=== PATIENT | female | born 1960 | race Caucasian/White ===

== ENCOUNTER → 2018-01-16 | Outpatient (CLI) | payer MEDICARE, BC ==
[~2018-01-16] MED LIST: ABAC300; ACET325 PO; ALBU90I INH; ALBU90OI INH; AMERGE PO; AMLO5 PO; ASPI325 PO; ASPI325EC PO; ATEN25; AZIT500 PO; AZOR PO; Ambien10 MG PO; Aspir-Trin325 MG PO; Ativan1 MG PO; Biotin1 MG PO; CARV25 PO; CARVEDILOL; CEFP250 PO; CEPH500; CLON.1 PO; Cleocin HCl300 MG PO; Cortef5 MG PO; DELTASONE20 MG PO; DEXA.5 PO; DEXA1 PO; DICL25ER PO; DICLOFENAC POTASSIUM PO; DIGO.25 PO; DILT60 PO; DOCU100 PO; Diclofenac Pota50 MG PO; EMERGE; EPIN.3I IM; ESCI10 PO; ESCI20 PO; ESTRA PO; ESTROGEN CREAM; Estradiol0.5 MG PO; Fludrocortison0.1 MG PO; GABA300 PO; GLIM4 PO; HYDACE5 PO; HYDACE7.5 PO; HYDCOR10 PO; HYDCOR20 PO; Hair, Skin & N1 EACH PO; Hydrocortisone10 MG PO; IBUP600 PO; IBUP800; IBUP800 PO; INSLI100I SC; INSR10I SC; LABE100 PO; LIOT25 PO; LISI10 PO; LISI20 PO; LISI5 PO; LOPE2C PO; LORA1 PO; LOVA20 PO; LOW OGESTREL PO; METF500 PO; METO100ER PO; METO25ER PO; METPRE4 PO; MULVITMIND PO; Mobic15 MG PO; NARA2.5; NARA2.5 PO; NEBI10 PO; NORETH PO; Norco 5-325 Ta1 EACH PO; ONDA4 PO; OXYACE5T PO; PRED1 PO; PRED20 PO; PRED20 PR; PRED5 PO; PREG75 PO; PROM25 PO; PROM25S PR; Percocet 10-321 EACH PO; Percocet 5-3251 EACH PO; RXHYDACE PO; RXOXYACE PO; RXPROM25 PO; SUMA25; TELM80 PO; TOPI100 PO; TOPI50 PO; TRAM50 PO; TRIE10TC TOP; VERA240ER PO; VERA240ERB PO; ZIPSOR25 MG PO; ZOLP10 PO; Zofran Odt4 MG PO; Zofran Odt4 MG SL; [UNRECOGNIZED DRUG - OTHER]; [UNRECOGNIZED DRUG - OTHER] PO; [UNRECOGNIZED DRUG - OTHER] PO; [UNRECOGNIZED DRUG - REMARK]; [UNRECOGNIZED DRUG - REMARK]; bistolic
[2018-01-16 20:17] LABS: BASOPHILS ABSOLUTE AUTO 0.04 K/mm3 (0.00-0.23); BASOPHILS PERCENT AUTO 1 % (0-2); EOSINOPHILS ABSOLUTE AUTO 0.29 K/mm3 (0.00-0.68); EOSINOPHILS PERCENT AUTO 3 % (0-6); Hematocrit 41.2 % (33.0-51.0); Hemoglobin 13.4 g/dL (11.5-16.0); IMMATURE GRAN ABSOLUTE AUTO 0.04 K/mm3 (0.00-0.10); IMMATURE GRAN PERCENT AUTO 1 % (0-1); LYMPHOCYTES ABSOLUTE AUTO 2.47 K/mm3 (0.84-5.20); LYMPHOCYTES PERCENT AUTO 29 % (21-46); MONOCYTES ABSOLUTE AUTO 0.47 K/mm3 (0.16-1.47); MONOCYTES PERCENT AUTO 6 % (4-13); Mean Corpuscular HGB 29.6 pg (26.0-34.0); Mean Corpuscular HGB Conc 32.5 g/dL (31.5-36.5); Mean Corpuscular Volume 91 fL (80-100); Mean Platelet Volume 9.8 fL (9.1-12.4); NEUTROPHILS ABSOLUTE AUTO 5.12 K/mm3 (1.96-9.15); NEUTROPHILS PERCENT AUTO 61 % (41-73); Platelet Count 295 K/mm3 (150-400); RDW Coefficient Variation 12.7 % (11.7-14.2); RDW Standard Deviation 42.1 fL (35.1-46.3); Red Blood Cell Count 4.52 M/mm3 (3.80-5.20); White Blood Cell Count 8.43 K/mm3 (4.00-11.30)
[2018-01-16 20:35] LABS: Alanine Aminotransfer (ALT/SGP 20 U/L (12-78); Albumin/Globulin Ratio 1.1 (0.8-1.8); Alk Phos 72 U/L (50-136); Anion Gap 10 mmol/L (6-16); Aspartate Aminotrans (AST/SGOT 12 U/L (12-37); Bilirubin, Total 0.2 mg/dL (0.1-1.0); Blood Urea Nitrogen 13 mg/dL (8-24); Bun/Creatinine Ratio 18.7 (12.0-20.0); CO2, Blood 23 mmol/L (21-32); Calcium, Blood 9.1 mg/dL (8.5-10.1); Chloride, Blood 107 mmol/L (98-108); Globulin, Blood 3.8 g/dL (2.2-4.0); Glomerular Filtration Rate >60 (60-); Glucose, Blood 86 mg/dL (70-99); Potassium, Blood 3.8 mmol/L (3.5-5.5); Sodium, Blood 140 mmol/L (136-145); Total Protein, Blood 7.8 g/dL (6.4-8.2)
== END ==
LOC: LAB 20:13
PROVIDERS: Nurse Practitioner
DX: R52 Pain, unspecified (principal); R50.9 Fever, unspecified
CPT/HCPCS: 80053; 85025

== ENCOUNTER 2018-01-27 19:52 | Inpatient (IN) | payer MEDICARE, BC ==
[~2018-01-27] VITALS: Ht 170.2 cm; Wt 75.0 kg
[~2018-01-27 19:52] MED LIST changes: -Cleocin HCl300 MG PO; -ESTROGEN CREAM; -LORA1 PO; -Mobic15 MG PO; -ZIPSOR25 MG PO
[2018-01-27 20:18] LABS: BASOPHILS ABSOLUTE AUTO 0.07 K/mm3 (0.00-0.23); BASOPHILS PERCENT AUTO 1 % (0-2); EOSINOPHILS ABSOLUTE AUTO 0.45 K/mm3 (0.00-0.68); EOSINOPHILS PERCENT AUTO 4 % (0-6); Hematocrit 37.2 % (33.0-51.0); Hemoglobin 12.1 g/dL (11.5-16.0); IMMATURE GRAN ABSOLUTE AUTO 0.04 K/mm3 (0.00-0.10); IMMATURE GRAN PERCENT AUTO 0 % (0-1); LYMPHOCYTES ABSOLUTE AUTO 2.82 K/mm3 (0.84-5.20); LYMPHOCYTES PERCENT AUTO 24 % (21-46); MONOCYTES ABSOLUTE AUTO 0.88 K/mm3 (0.16-1.47); MONOCYTES PERCENT AUTO 8 % (4-13); Mean Corpuscular HGB 30.1 pg (26.0-34.0); Mean Corpuscular HGB Conc 32.5 g/dL (31.5-36.5); Mean Corpuscular Volume 93 fL (80-100); Mean Platelet Volume 9.9 fL (9.1-12.4); NEUTROPHILS PERCENT AUTO 64 % (41-73); Platelet Count 300 K/mm3 (150-400); RDW Standard Deviation 44.2 fL (35.1-46.3); Red Blood Cell Count 4.02 M/mm3 (3.80-5.20); White Blood Cell Count 11.66 K/mm3 (4.00-11.30)
[2018-01-27] MEDS ORDERED: Ativan1 MG PO (20:24)
[2018-01-27 20:36] LABS: Magnesium, Blood 2.1 mg/dL (1.6-2.4); Troponin I <0.015 ng/mL (0.000-0.040)
[2018-01-27 20:39] LABS: Alanine Aminotransfer (ALT/SGP 29 U/L (12-78); Albumin, Blood 3.4 g/dL (3.4-5.0); Albumin/Globulin Ratio 1.1 (0.8-1.8); Alk Phos 58 U/L (50-136); Anion Gap 9 mmol/L (6-16); Aspartate Aminotrans (AST/SGOT 17 U/L (12-37); Bilirubin, Total 0.2 mg/dL (0.1-1.0); Blood Urea Nitrogen 21 mg/dL (8-24); Bun/Creatinine Ratio 14.8 (12.0-20.0); CO2, Blood 21 mmol/L (21-32); Calcium, Blood 8.9 mg/dL (8.5-10.1); Chloride, Blood 110 mmol/L (98-108); Creatinine, Blood 1.42 mg/dL (0.40-1.00); Glomerular Filtration Rate 41 (60-); Glucose, Blood 113 mg/dL (70-99); Sodium, Blood 140 mmol/L (136-145); Total Protein, Blood 6.4 g/dL (6.4-8.2)
[2018-01-27 22:13] LABS: Thyroid Stimulating Hormone 0.701 uIU/mL (0.360-4.800)
[2018-01-28] MEDS ORDERED: ZIPSOR25 MG PO (00:39)
[2018-01-28 04:32] LABS: BASOPHILS ABSOLUTE AUTO 0.01 K/mm3 (0.00-0.23); BASOPHILS PERCENT AUTO 0 % (0-2); EOSINOPHILS ABSOLUTE AUTO 0.02 K/mm3 (0.00-0.68); EOSINOPHILS PERCENT AUTO 0 % (0-6); Hematocrit 36.8 % (33.0-51.0); Hemoglobin 12.1 g/dL (11.5-16.0); IMMATURE GRAN ABSOLUTE AUTO 0.04 K/mm3 (0.00-0.10); IMMATURE GRAN PERCENT AUTO 0 % (0-1); LYMPHOCYTES ABSOLUTE AUTO 1.05 K/mm3 (0.84-5.20); LYMPHOCYTES PERCENT AUTO 10 % (21-46); MONOCYTES ABSOLUTE AUTO 0.07 K/mm3 (0.16-1.47); MONOCYTES PERCENT AUTO 1 % (4-13); Mean Corpuscular HGB Conc 32.9 g/dL (31.5-36.5); Mean Corpuscular Volume 91 fL (80-100); Mean Platelet Volume 10.1 fL (9.1-12.4); NEUTROPHILS ABSOLUTE AUTO 9.48 K/mm3 (1.96-9.15); NEUTROPHILS PERCENT AUTO 89 % (41-73); Platelet Count 278 K/mm3 (150-400); RDW Coefficient Variation 12.9 % (11.7-14.2); RDW Standard Deviation 42.7 fL (35.1-46.3); Red Blood Cell Count 4.04 M/mm3 (3.80-5.20); White Blood Cell Count 10.67 K/mm3 (4.00-11.30)
[2018-01-28 04:57] LABS: Alanine Aminotransfer (ALT/SGP 60 U/L (12-78); Albumin, Blood 2.9 g/dL (3.4-5.0); Alk Phos 61 U/L (50-136); Anion Gap 9 mmol/L (6-16); Aspartate Aminotrans (AST/SGOT 34 U/L (12-37); Bilirubin, Total 0.3 mg/dL (0.1-1.0); Blood Urea Nitrogen 17 mg/dL (8-24); Bun/Creatinine Ratio 19.6 (12.0-20.0); CO2, Blood 19 mmol/L (21-32); Calcium, Blood 8.1 mg/dL (8.5-10.1); Chloride, Blood 114 mmol/L (98-108); Creatinine, Blood 0.87 mg/dL (0.40-1.00); Glomerular Filtration Rate >60 (60-); Glucose, Blood 177 mg/dL (70-99); Potassium, Blood 3.6 mmol/L (3.5-5.5); Sodium, Blood 142 mmol/L (136-145); Total Protein, Blood 5.9 g/dL (6.4-8.2)
== END 2018-01-28 19:27 | disposition home or self-care (01) | DRG 645 ==
LOC: ER 19:52 → PCU 22:45
PROVIDERS: Emergency Medicine; Family Medicine
DX: E27.1 Primary adrenocortical insufficiency (principal); I95.9 Hypotension, unspecified; R00.1 Bradycardia, unspecified; E86.0 Dehydration; N28.9 Disorder of kidney and ureter, unspecified; F32.9 Major depressive disorder, single episode, unspecified; G43.909 Migraine, unspecified, not intractable, without status migrainosus; G44.89 Other headache syndrome; F51.04 Psychophysiologic insomnia; Z91.030 Bee allergy status; Z79.899 Other long term (current) drug therapy; Z88.0 Allergy status to penicillin; Z88.8 Allergy status to other drugs, medicaments and biological substances
CPT/HCPCS: 36415; 71045; 80053; 83735; 84443; 84484; 85025; 93005; 93010; 93306; 96361; 96374; 96375; 99285; J1940; J2405; J2550; J2930; J7030; J7120

== ENCOUNTER → 2018-07-30 | Outpatient (CLI) | payer MEDICARE, BC ==
[~2018-07-30] MED LIST changes: +ZIPSOR25 MG PO
== END | disposition home or self-care (01) ==
LOC: PLD 08:23 → LAB SHORT 08:23
DX: R93.8 Abnormal findings on diagnostic imaging of other specified body structures (principal)
CPT/HCPCS: 88305

== ENCOUNTER 2018-09-09 06:02 | Day surgery (SDC) | payer MEDICARE, BC ==
[~2018-09-09] VITALS: Ht 170.2 cm; Wt 72.1 kg
[~2018-09-09 06:02] MED LIST changes: +LORA1 PO; +Mobic15 MG PO
[2018-09-09] MEDS ORDERED: ESTROGEN CREAM (06:40)
[2018-09-09 15:32] LABS: BASOPHILS ABSOLUTE AUTO 0.01 K/mm3 (0.00-0.23); BASOPHILS PERCENT AUTO 0 % (0-2); EOSINOPHILS ABSOLUTE AUTO 0.01 K/mm3 (0.00-0.68); EOSINOPHILS PERCENT AUTO 0 % (0-6); Hematocrit 34.7 % (33.0-51.0); Hemoglobin 11.2 g/dL (11.5-16.0); IMMATURE GRAN ABSOLUTE AUTO 0.06 K/mm3 (0.00-0.10); IMMATURE GRAN PERCENT AUTO 1 % (0-1); LYMPHOCYTES ABSOLUTE AUTO 0.91 K/mm3 (0.84-5.20); LYMPHOCYTES PERCENT AUTO 7 % (21-46); MONOCYTES ABSOLUTE AUTO 0.33 K/mm3 (0.16-1.47); MONOCYTES PERCENT AUTO 3 % (4-13); Mean Corpuscular HGB 30.5 pg (26.0-34.0); Mean Corpuscular HGB Conc 32.3 g/dL (31.5-36.5); Mean Corpuscular Volume 95 fL (80-100); Mean Platelet Volume 9.5 fL (9.1-12.4); NEUTROPHILS ABSOLUTE AUTO 11.84 K/mm3 (1.96-9.15); NEUTROPHILS PERCENT AUTO 90 % (41-73); Platelet Count 237 K/mm3 (150-400); RDW Coefficient Variation 12.8 % (11.7-14.2); RDW Standard Deviation 44.2 fL (35.1-46.3); Red Blood Cell Count 3.67 M/mm3 (3.80-5.20); White Blood Cell Count 13.16 K/mm3 (4.00-11.30)
[2018-09-10 04:29] LABS: BASOPHILS ABSOLUTE AUTO 0.03 K/mm3 (0.00-0.23); BASOPHILS PERCENT AUTO 0 % (0-2); EOSINOPHILS ABSOLUTE AUTO 0.14 K/mm3 (0.00-0.68); EOSINOPHILS PERCENT AUTO 1 % (0-6); Hematocrit 31.7 % (33.0-51.0); Hemoglobin 10.1 g/dL (11.5-16.0); IMMATURE GRAN ABSOLUTE AUTO 0.05 K/mm3 (0.00-0.10); IMMATURE GRAN PERCENT AUTO 0 % (0-1); LYMPHOCYTES ABSOLUTE AUTO 2.02 K/mm3 (0.84-5.20); LYMPHOCYTES PERCENT AUTO 16 % (21-46); MONOCYTES ABSOLUTE AUTO 0.92 K/mm3 (0.16-1.47); MONOCYTES PERCENT AUTO 8 % (4-13); Mean Corpuscular HGB 30.7 pg (26.0-34.0); Mean Corpuscular HGB Conc 31.9 g/dL (31.5-36.5); Mean Corpuscular Volume 96 fL (80-100); Mean Platelet Volume 9.6 fL (9.1-12.4); NEUTROPHILS ABSOLUTE AUTO 9.16 K/mm3 (1.96-9.15); NEUTROPHILS PERCENT AUTO 74 % (41-73); Platelet Count 213 K/mm3 (150-400); RDW Coefficient Variation 12.8 % (11.7-14.2); RDW Standard Deviation 45.8 fL (35.1-46.3); Red Blood Cell Count 3.29 M/mm3 (3.80-5.20); White Blood Cell Count 12.32 K/mm3 (4.00-11.30)
[2018-09-10 11:23] LABS: BASOPHILS ABSOLUTE AUTO 0.02 K/mm3 (0.00-0.23); BASOPHILS PERCENT AUTO 0 % (0-2); EOSINOPHILS ABSOLUTE AUTO 0.03 K/mm3 (0.00-0.68); EOSINOPHILS PERCENT AUTO 0 % (0-6); Hematocrit 34.2 % (33.0-51.0); Hemoglobin 10.9 g/dL (11.5-16.0); IMMATURE GRAN ABSOLUTE AUTO 0.04 K/mm3 (0.00-0.10); IMMATURE GRAN PERCENT AUTO 0 % (0-1); LYMPHOCYTES ABSOLUTE AUTO 0.91 K/mm3 (0.84-5.20); LYMPHOCYTES PERCENT AUTO 8 % (21-46); MONOCYTES ABSOLUTE AUTO 0.36 K/mm3 (0.16-1.47); MONOCYTES PERCENT AUTO 3 % (4-13); Mean Corpuscular HGB 30.7 pg (26.0-34.0); Mean Corpuscular HGB Conc 31.9 g/dL (31.5-36.5); Mean Corpuscular Volume 96 fL (80-100); Mean Platelet Volume 9.9 fL (9.1-12.4); NEUTROPHILS ABSOLUTE AUTO 9.89 K/mm3 (1.96-9.15); NEUTROPHILS PERCENT AUTO 88 % (41-73); Platelet Count 224 K/mm3 (150-400); RDW Coefficient Variation 12.9 % (11.7-14.2); RDW Standard Deviation 45.9 fL (35.1-46.3); Red Blood Cell Count 3.55 M/mm3 (3.80-5.20); White Blood Cell Count 11.25 K/mm3 (4.00-11.30)
[2018-09-10] MEDS ORDERED: Percocet 5-3251 EACH PO (16:59)
[2018-09-10] MEDS ORDERED: IBUP800 PO (16:59)
== END 2018-09-10 17:08 | disposition home or self-care (01) ==
LOC: ORSCMMR 06:02 → ORD 07:30 → SURS 12:28 → ORSCMMR 09-10 17:08
PROVIDERS: Obstetrics & Gynecology
PROC: 0UT9FZZ Resection of Uterus, Via Natural or Artificial Opening With Percutaneous Endoscopic Assistance (ICD-10-PCS; principal; 2018-09-10)
DX: D25.9 Leiomyoma of uterus, unspecified (principal); N85.00 Endometrial hyperplasia, unspecified; N85.2 Hypertrophy of uterus; N95.0 Postmenopausal bleeding; J45.909 Unspecified asthma, uncomplicated; Z79.899 Other long term (current) drug therapy
CPT/HCPCS: 36415; 85025; 88307; J0690; J1885; J2250; J2370; J2405; J2930; J3010; J7030; J7120; Q9968

== ENCOUNTER 2018-12-14 08:19 | Day surgery (SDC) | payer MEDICARE, BC ==
[~2018-12-14] VITALS: Ht 170.2 cm; Wt 69.6 kg
[~2018-12-14 08:19] MED LIST changes: +Cleocin HCl300 MG PO; +ESTROGEN CREAM; +Estrace Vagin42.5 GM PV; +LOPREEZA 0.5 M1 EACH PO; +LORA1; +MIMVEY LO 0.5-1 EACH PO; +Multiple Vitam1 EACH PO; +ONDA4ODT MM; +ONDA8 PO
--- NOTE | 2018-12-14 10:15 | NUR ---
12/14/18 1014 Henny Felder UPDATED PATIENT REGARDING DELAY. PATIENT REQUESTED WARM BLANKET. NO OTHER COMPLAINTS AT THIS TIME. CALL LIGHT WITHIN REACH.
--- NOTE | 2018-12-14 11:01 | NUR ---
12/14/18 1101 Henny Felder L 200 ML LR LEFT TO COUNT. UNABLE TO CHART IN MED/I&O'S
== END 2018-12-14 11:26 | disposition home or self-care (01) ==
LOC: ORSCSDS 08:19
PROVIDERS: Student in an Organized Health Care Education/Training Program
PROC: 0DJD8ZZ Inspection of Lower Intestinal Tract, Via Natural or Artificial Opening Endoscopic (ICD-10-PCS; principal; 2018-12-14 09:45)
DX: Z12.11 Encounter for screening for malignant neoplasm of colon (principal); K64.8 Other hemorrhoids; I10 Essential (primary) hypertension; J45.909 Unspecified asthma, uncomplicated; F32.9 Major depressive disorder, single episode, unspecified; Z86.73 Personal history of transient ischemic attack (TIA), and cerebral infarction without residual deficits; Z79.899 Other long term (current) drug therapy; Z87.891 Personal history of nicotine dependence
CPT/HCPCS: J7120

== ENCOUNTER → 2019-03-01 | Outpatient (CLI) | payer MEDICARE, BC | END | disposition home or self-care (01) | LOC: PLD 08:22 → LAB SHORT 08:22 | DX: L57.0 Actinic keratosis (principal) | CPT/HCPCS: 88305 ==

== ENCOUNTER → 2019-08-05 | Outpatient (CLI) | payer MEDICARE, BC | END | disposition home or self-care (01) | LOC: LAB 12:35 → LAB SHORT 12:35 | DX: L08.0 Pyoderma (principal) | CPT/HCPCS: 87070; 87077; 87186; 87205 ==

== ENCOUNTER 2020-01-28 19:16 | Inpatient (IN) | payer MEDICARE, BC, OTHER ==
[~2020-01-28] VITALS: Ht 172.7 cm; Wt 75.4 kg
[~2020-01-28 19:16] MED LIST changes: +Protonix40 MG PO; +Xylocaine 2% In20 ML PO
[2020-01-28 19:39] LABS: BASOPHILS ABSOLUTE AUTO 0.05 K/mm3 (0.00-0.23); BASOPHILS PERCENT AUTO 1 % (0-2); EOSINOPHILS ABSOLUTE AUTO 0.22 K/mm3 (0.00-0.68); EOSINOPHILS PERCENT AUTO 2 % (0-6); Hematocrit 43.3 % (33.0-51.0); Hemoglobin 14.2 g/dL (11.5-16.0); IMMATURE GRAN ABSOLUTE AUTO 0.03 K/mm3 (0.00-0.10); IMMATURE GRAN PERCENT AUTO 0 % (0-1); LYMPHOCYTES ABSOLUTE AUTO 2.29 K/mm3 (0.84-5.20); LYMPHOCYTES PERCENT AUTO 23 % (21-46); MONOCYTES ABSOLUTE AUTO 0.62 K/mm3 (0.16-1.47); MONOCYTES PERCENT AUTO 6 % (4-13); Mean Corpuscular HGB 30.5 pg (26.0-34.0); Mean Corpuscular HGB Conc 32.8 g/dL (31.5-36.5); Mean Corpuscular Volume 93 fL (80-100); Mean Platelet Volume 9.7 fL (9.1-12.4); NEUTROPHILS ABSOLUTE AUTO 6.56 K/mm3 (1.96-9.15); NEUTROPHILS PERCENT AUTO 67 % (41-73); Platelet Count 293 K/mm3 (150-400); RDW Coefficient Variation 12.7 % (11.7-14.2); RDW Standard Deviation 43.8 fL (35.1-46.3); Red Blood Cell Count 4.66 M/mm3 (3.80-5.20); White Blood Cell Count 9.77 K/mm3 (4.00-11.30)
[2020-01-28] MEDS ORDERED: TEMA15 PO (19:44)
[2020-01-28] MEDS ORDERED: DICLOFENAC SOD100 G1 TOP (19:45)
[2020-01-28] MEDS ORDERED: ESCI20 PO (19:45)
[2020-01-28 19:54] LABS: International Normalized Ratio 0.97; Prothrombin Time Results 10.4 Sec (9.7-11.5)
[2020-01-28 20:02] LABS: Alanine Aminotransfer (ALT/SGP 31 U/L (12-78); Albumin, Blood 3.8 g/dL (3.4-5.0); Albumin/Globulin Ratio 1.1 (0.8-1.8); Alk Phos 87 U/L (50-136); Anion Gap 7 mmol/L (6-16); Aspartate Aminotrans (AST/SGOT 21 U/L (12-37); Bilirubin, Total 0.2 mg/dL (0.1-1.0); Blood Urea Nitrogen 19 mg/dL (8-24); CO2, Blood 24 mmol/L (21-32); Calcium, Blood 10.4 mg/dL (8.5-10.1); Chloride, Blood 108 mmol/L (98-108); Globulin, Blood 3.6 g/dL (2.2-4.0); Glomerular Filtration Rate >60 (60-); Glucose, Blood 114 mg/dL (70-99); Sodium, Blood 139 mmol/L (136-145); Total Protein, Blood 7.4 g/dL (6.4-8.2)
[2020-01-28 23:07] LABS: Adenovirus Not Detected (NOT DETECT); Bordetella pertussis Not Detected (NOT DETECT); Chlamydophila pneumoniae Not Detected (NOT DETECT); Coronavirus 229E Not Detected (NOT DETECT); Coronavirus HKU1 Not Detected (NOT DETECT); Coronavirus NL63 Not Detected (NOT DETECT); Coronavirus OC43 Not Detected (NOT DETECT); Human Metapneumovirus Not Detected (NOT DETECT); Human Rhinovirus/Enterovirus Not Detected (NOT DETECT); Influenza A/2009-H1 Not Detected (NOT DETECT); Influenza A/H1 Not Detected (NOT DETECT); Influenza A/H3 Not Detected (NOT DETECT); Influenza B Not Detected (NOT DETECT); Mycoplasma pneumoniae Not Detected (NOT DETECT); Parainfluenza Virus 1 Not Detected (NOT DETECT); Parainfluenza Virus 2 Not Detected (NOT DETECT); Parainfluenza Virus 3 Not Detected (NOT DETECT); Parainfluenza Virus 4 Not Detected (NOT DETECT); Respiratory Syncytial Virus Not Detected (NOT DETECT)
--- NOTE | 2020-01-28 23:30 | NUR ---
DR DIANE IN TO SEE PT, ADDITIONAL SUTURE PLACED ON CENTRAL LINE.
[2020-01-29 00:30] LABS: Adenovirus F 40/41 Not Detected (NOT DETECT); Astrovirus Not Detected (NOT DETECT); Campylobacter Sp Not Detected (NOT DETECT); Cryptosporidium Not Detected (NOT DETECT); Cyclospora Cayetanensis Not Detected (NOT DETECT); E. Coli O157 Not Detected (NOT DETECT); Entamoeba Histolytica Not Detected (NOT DETECT); Enteroaggregative E. coli-EAEC Not Detected (NOT DETECT); Enteropathogenic E. coli-EPEC Not Detected (NOT DETECT); Enterotoxigenic E. coli-ETEC Not Detected (NOT DETECT); Giardia Lamblia Not Detected (NOT DETECT); Norovirus GI/GII Not Detected (NOT DETECT); Plesiomonas Shigelloides Not Detected (NOT DETECT); Rotavirus A Not Detected (NOT DETECT); Salmonella Sp Not Detected (NOT DETECT); Sapovirus Not Detected (NOT DETECT); Shiga Toxin-prod E. coli-STEC Not Detected (NOT DETECT); Shigella/Enteroin E. coli-EIEC Not Detected (NOT DETECT); Vibrio Cholerae Not Detected (NOT DETECT); Vibrio Sp Not Detected (NOT DETECT); Yersinia Enterocolitica Not Detected (NOT DETECT)
--- NOTE | 2020-01-29 01:00 | NUR ---
UPDATED DR DIANE ON CURRENT INFUSION RATE FOR PRESSORS
--- NOTE | 2020-01-29 01:38 | NUR ---
UPDATED DR DIANE ON GTT INF RATES, LEVO 20, VASO .04, EPI 20. NO NEW ORDERS AT THIS TIME.
--- NOTE | 2020-01-29 02:25 | NUR ---
PT TO ICU 9 @ 2215, PT ALERT AND ORIENTED TO SELF, LOCATIONE, EVENT AND FOLLOWING DIRECTIONS. PT WITH CENTRAL LINE TO RIJ, INFUSING LEVO @ 1. PT UP TO BEDSIDE COMMODE, ONE PERSON ASSIST, MILD WEAKNESS NOTED, PT REPORTS DIZZINESS UPON GETTING UP FROM BSC TO BED. MONITOR SHOWS HR 50'S-60'S, HYPOTENSIVE WITH SBP 50-60'S AND MAP 40'S-50'S, SEE FLOWSHEET FOR GTT TITRATIONS. PT AFEBRILE WITH TEMP 97.4. O2 SATURATIONS 92-95% ON RA, PLACED ON 2L PER NC WHILE SLEEPING TO MAINTAIN O2>90%. PT DENIES PAIN OR SOB AT THIS TIME, STS SHE IS JUST VERY TIRED. PT REPORTS VISITING [employer] FOR APPROX 3 WEEKS IN NOVEMBER, STS HAD AN ER VISIT IN DECEMBER FOR CP AND MARICRUZ HAS BEEN EXPERIENCING A COUGH x2 WEEKS AND FEVER AND DIARRHEA x1 WEEK, REPORTS TEMP AT HOME REACHING 103.0 AND TAKING TYLENOL TO REDUCE FEVER.
[2020-01-29 04:12] LABS: BASOPHILS ABSOLUTE AUTO 0.03 K/mm3 (0.00-0.23); BASOPHILS PERCENT AUTO 0 % (0-2); EOSINOPHILS ABSOLUTE AUTO 0.04 K/mm3 (0.00-0.68); EOSINOPHILS PERCENT AUTO 0 % (0-6); Hematocrit 36.5 % (33.0-51.0); IMMATURE GRAN ABSOLUTE AUTO 0.08 K/mm3 (0.00-0.10); IMMATURE GRAN PERCENT AUTO 1 % (0-1); LYMPHOCYTES ABSOLUTE AUTO 2.59 K/mm3 (0.84-5.20); LYMPHOCYTES PERCENT AUTO 15 % (21-46); MONOCYTES ABSOLUTE AUTO 0.83 K/mm3 (0.16-1.47); MONOCYTES PERCENT AUTO 5 % (4-13); Mean Corpuscular HGB 30.5 pg (26.0-34.0); Mean Corpuscular HGB Conc 32.9 g/dL (31.5-36.5); Mean Corpuscular Volume 93 fL (80-100); Mean Platelet Volume 9.9 fL (9.1-12.4); NEUTROPHILS ABSOLUTE AUTO 13.32 K/mm3 (1.96-9.15); NEUTROPHILS PERCENT AUTO 79 % (41-73); Platelet Count 354 K/mm3 (150-400); RDW Coefficient Variation 11.9 % (11.7-14.2); RDW Standard Deviation 41.1 fL (35.1-46.3); Red Blood Cell Count 3.93 M/mm3 (3.80-5.20); White Blood Cell Count 16.89 K/mm3 (4.00-11.30)
[2020-01-29 04:34] LABS: Bilirubin, Total 0.2 mg/dL (0.1-1.0); Bun/Creatinine Ratio 22.5 (12.0-20.0); Creatinine, Blood 1.02 mg/dL (0.40-1.00); Potassium, Blood 4.4 mmol/L (3.5-5.5)
[2020-01-29 04:35] LABS: Calcium, Blood 8.4 mg/dL (8.5-10.1)
--- NOTE | 2020-01-29 05:56 | NUR ---
CALL PLACED TO DR DIANE REGARDING LACTIC ACID, GLUCOSE, AND BP. ORDERS FOR REGULAR INSULIN HIGH SLIDING SCALE Q6 AND INCREASE LEVOPHED TO 30mcg/min.
--- NOTE | 2020-01-29 07:17 | NUR ---
ASSUMED CARE REPORT FROM GUSTAVO KENNEDY. PATIENT SLEEPING WITH NC 2L. HYPOTENSIVE. IN DROPLET ISOLATION FOR R/O COVID-19.
--- NOTE | 2020-01-29 07:22 | NUR ---
SHIFT SUMMARY PT VERY DROWSY T/O SHIFT, AROUSES TO VERBAL STIMULI BUT QUICKLY FALLS BACK TO SLEEP. MONITOR SHOWS SINUS RHYTHM WITH HR 60'S-70'S, PT REMAINS HYPOTENSIVE WITH MAPS 50'S, LEVO @ 30, VASOPRESSIN @ 0.04 AND EPI @ 20 GTT'S INFUSING, SEE FLOWSHEET FOR TITRATIONS. CALL PLACED TO DR DIANE REGARDING MORNING LABS (SEE PREVIOUS NOTE). REPORT GIVEN TO ONEAL CHEN.
--- NOTE | 2020-01-29 07:45 | NUR ---
BP 76/52 (67). LEVOPHED 30 MCG/MIN EPINEPHRINE 20 MCG/MIN VASOPRESSIN .04 UNITS/MIN. LR 100 ML/HR. PATIENT CONTINES TO SLEEP WITH 2L NC. BIOX 96%
--- NOTE | 2020-01-29 09:45 | NUR ---
Echocardiogram completed.
--- NOTE | 2020-01-29 10:13 | NUR ---
MD VISITS DR. DIANE AND DR. JORDAN BOTH IN. DR. DAINE ORDER 1L BOLUS LR. REORDER OF UA THAT WAS CANCELED WHEN NOT COLLECTED IN ER. HOME MED WAS CHANGED TO OUR [facility].
[2020-01-29 11:29] LABS: Source, Urine Clean Catch
[2020-01-29 11:43] LABS: Bilirubin, Urine Neg (Neg); Blood, Urine 2+ (Neg); Glucose Qualitative, Urine 4+ (Neg); Ketones, Urine Neg (Neg); Leukocyte Esterase, Urine Neg (Neg); Nitrite, Urine Neg (Neg); Protein, Urine Neg (Neg); Urobilinogen, Urine NORM (Normal)
[2020-01-29 11:49] LABS: Appearance, Urine Clear (Clear); Color, Urine Pale Yellow (P-Yellow); Red Blood Cells, Urine 0-2 /hpf (0-2); White Blood Cells, Urine 0-2 /hpf (0-5)
[2020-01-29 11:50] LABS: Bacteria Rare /hpf; Squamous Epithelial Cells Mod /hpf (Few)
[2020-01-29 12:06] LABS: Glucose, Blood 570 mg/dL (70-99)
--- NOTE | 2020-01-29 14:39 | NUR ---
CBG'S GREATER THAN 500. DR. DIANE NOTIFIED. INSULIN GTT STARTED. PATIENT VOMITED WHILE UP TO BSC. ZOFRAN GIVEN BY GUSTAVO HUGHES. CONTINUES ON ALL 3 PRESSORS. 1 BOLUS LR GIVEN. LR 1OO ML.HR.
[2020-01-29 16:35] LABS: Glucose, Blood 492 mg/dL (70-99)
--- NOTE | 2020-01-29 16:50 | NUR ---
LOWER THAN PREVIOUS BP'S WHEN PATIENT RECLINING ON RIGHT SIDE WITH LEFT ARM ELEVATED. REPOSITIONED SUPINE FOR ACCURATE BP'S. INSULIN GTT TO 10 UNITS/HR FOR CONTINUED BLOOD SUGARS GREATER THAN 500 AND NAUSEA.
--- NOTE | 2020-01-29 17:36 | NUR ---
insulin to 5 for 492 blood sugar
--- NOTE | 2020-01-29 19:35 | NUR ---
PATIENT C/O PAIN RIJ. DR. DIANE NOTIFIED. CXR ORDERED
--- NOTE | 2020-01-29 19:36 | NUR ---
TYLENOL GIVEN FOR CONTINUED PAIN IN HER NECK PATIENT VOMITTED SHORTLY AFTER
--- NOTE | 2020-01-29 19:41 | NUR ---
REPORT TO GUSTAVO KENNEDY
[2020-01-29 20:01] LABS: Anion Gap 13 mmol/L (6-16); Blood Urea Nitrogen 13 mg/dL (8-24); Bun/Creatinine Ratio 18.5 (12.0-20.0); CO2, Blood 18 mmol/L (21-32); Chloride, Blood 91 mmol/L (98-108); Glomerular Filtration Rate >60 (60-); Glucose, Blood 408 mg/dL (70-99); Potassium, Blood 2.8 mmol/L (3.5-5.5); Sodium, Blood 122 mmol/L (136-145)
[2020-01-29 21:31] LABS: Source, Urine Catheter
[2020-01-29 21:42] LABS: Bilirubin, Urine Neg (Neg); Blood, Urine 3+ (Neg); Glucose Qualitative, Urine 4+ (Neg); Ketones, Urine Neg (Neg); Leukocyte Esterase, Urine Neg (Neg); Nitrite, Urine Neg (Neg); Protein, Urine Neg (Neg); Urobilinogen, Urine NORM (Normal)
[2020-01-29 21:46] LABS: Appearance, Urine Clear (Clear); Color, Urine Yellow (P-Yellow)
[2020-01-29 21:49] LABS: Bacteria Not Seen /hpf; Red Blood Cells, Urine 0-2 /hpf (0-2); Squamous Epithelial Cells Not Seen /hpf (Few); White Blood Cells, Urine Not Seen /hpf (0-5)
--- NOTE | 2020-01-29 22:00 | NUR ---
ASSUMPTION OF CARE ASSUMED CARE OF PT @ 1900, PT AWAKE IN BED, VOMITING, ZOFRAN PROVIDED. PT ORIENTED TO SELF, PLACE, EVENT AND FOLLOWING DIRECTIONS. PT ON RA, MONITOR SHOWS SINUS RHYTHM, HR 80'S, PT ON LEVOPHED @ 30, VASOPRESSIN @ .04, AND EPI @ 20 FOR BP SUPPORT (SEE FLOWSHEET FOR TITRATIONS). PT UP TO BSC, WEAKNESS NOTED, PT WITH DIFFICULTY URINATING, SOME INCONTINENCE. BLADDER SKAN SHOWED >999, ALEJANDRE INSERTED WITH URINE RETURN OF 1000ml. INSULIN GTT @ 5 TO MAINTAIN BLOOD GLUCOSE. UPDATED DR DIANE ON PTS STATUS AND LAB RESULTS, NEW ORDERS FOR NS, KCL, AND REGLAN (SEE MAR).
[2020-01-30 05:08] LABS: BASOPHILS ABSOLUTE AUTO 0.03 K/mm3 (0.00-0.23); BASOPHILS PERCENT AUTO 0 % (0-2); EOSINOPHILS ABSOLUTE AUTO 0.01 K/mm3 (0.00-0.68); EOSINOPHILS PERCENT AUTO 0 % (0-6); Hematocrit 32.7 % (33.0-51.0); Hemoglobin 11.7 g/dL (11.5-16.0); IMMATURE GRAN ABSOLUTE AUTO 0.15 K/mm3 (0.00-0.10); IMMATURE GRAN PERCENT AUTO 1 % (0-1); LYMPHOCYTES ABSOLUTE AUTO 2.56 K/mm3 (0.84-5.20); LYMPHOCYTES PERCENT AUTO 10 % (21-46); MONOCYTES ABSOLUTE AUTO 1.77 K/mm3 (0.16-1.47); MONOCYTES PERCENT AUTO 7 % (4-13); Mean Corpuscular HGB 30.6 pg (26.0-34.0); Mean Corpuscular HGB Conc 35.8 g/dL (31.5-36.5); Mean Platelet Volume 9.8 fL (9.1-12.4); NEUTROPHILS ABSOLUTE AUTO 20.75 K/mm3 (1.96-9.15); NEUTROPHILS PERCENT AUTO 82 % (41-73); Platelet Count 288 K/mm3 (150-400); RDW Coefficient Variation 11.9 % (11.7-14.2); RDW Standard Deviation 36.8 fL (35.1-46.3); Red Blood Cell Count 3.82 M/mm3 (3.80-5.20); White Blood Cell Count 25.27 K/mm3 (4.00-11.30)
[2020-01-30 05:10] LABS: Mean Corpuscular Volume 86 fL (80-100)
[2020-01-30 05:20] LABS: Alanine Aminotransfer (ALT/SGP 28 U/L (12-78); Albumin, Blood 2.9 g/dL (3.4-5.0); Alk Phos 68 U/L (50-136); Anion Gap 14 mmol/L (6-16); Aspartate Aminotrans (AST/SGOT 14 U/L (12-37); Bilirubin, Direct <0.1 mg/dL (0.0-0.3); Bilirubin, Indirect Unable to Calculate mg/dL (0.1-0.7); Bilirubin, Total 0.2 mg/dL (0.1-1.0); Blood Urea Nitrogen 9 mg/dL (8-24); Bun/Creatinine Ratio 13.3 (12.0-20.0); CO2, Blood 17 mmol/L (21-32); Calcium, Blood 7.7 mg/dL (8.5-10.1); Chloride, Blood 89 mmol/L (98-108); Creatinine, Blood 0.68 mg/dL (0.40-1.00); Globulin, Blood 2.9 g/dL (2.2-4.0); Glomerular Filtration Rate >60 (60-); Glucose, Blood 231 mg/dL (70-99); Potassium, Blood 3.7 mmol/L (3.5-5.5); Sodium, Blood 120 mmol/L (136-145); Total Protein, Blood 5.8 g/dL (6.4-8.2)
--- NOTE | 2020-01-30 06:05 | NUR ---
SHIFT SUMMARY PT SLEPT T/O SHIFT, AROUSES TO VERBAL STIMULI, SOME DIFFICULTY ANSWERING QUESTIONS THIS MORNING, PT ANSWERS YES/NO QUESTIONS APPROPRIATELY BUT IS UNABLE/VERY SLOW TO RESPOND WITH OPEN ENDED QUESTIONS (SEE NEURO ASSESSMENT), PT MAINTAINS O2 SATURATIONS>90% ON RA, MONITOR SHOWS SINUS RHYTHM WITH HR 70'S-80'S, BP MAINTAINED ON LEVO @ 25, VASO @ .04, EPI CURRENTLY ON SB (SEE FLOWSHEET FOR TITRATIONS) INSULIN INF @ 5. ALEJANDRE PLACED AT BEGNINNING OF SHIFT, DRAINING CLEAR YELLOW URINE. PT CONTINUES TO REPORT NAUSEA, PRN ZOFRAN AND REGLAN PROVIDED. MORNING LABS SHOWED LOW SODIUM, DR DIANE NOTIFIED, SEE NEW ORDERS.
[2020-01-30 08:03] LABS: Anion Gap 10 mmol/L (6-16); Blood Urea Nitrogen 9 mg/dL (8-24); Bun/Creatinine Ratio 13.5 (12.0-20.0); CO2, Blood 20 mmol/L (21-32); Chloride, Blood 92 mmol/L (98-108); Creatinine, Blood 0.67 mg/dL (0.40-1.00); Glomerular Filtration Rate >60 (60-); Glucose, Blood 64 mg/dL (70-99); Potassium, Blood 3.7 mmol/L (3.5-5.5); Sodium, Blood 122 mmol/L (136-145)
[2020-01-30 09:03] LABS: Anion Gap 8 mmol/L (6-16); Blood Urea Nitrogen 10 mg/dL (8-24); Bun/Creatinine Ratio 13.7 (12.0-20.0); CO2, Blood 22 mmol/L (21-32); Calcium, Blood 7.9 mg/dL (8.5-10.1); Chloride, Blood 92 mmol/L (98-108); Creatinine, Blood 0.73 mg/dL (0.40-1.00); Glomerular Filtration Rate >60 (60-); Potassium, Blood 3.3 mmol/L (3.5-5.5); Sodium, Blood 122 mmol/L (136-145)
[2020-01-30 09:09] LABS: Glucose, Blood 36 mg/dL (70-99)
--- NOTE | 2020-01-30 10:29 | NUR ---
ASSUMED CARE AT 0715. PATIENT WAS TRYING TO CLIMB OUT OF BED IN PANIC. PLACED 2L NC ON, ELEVATED THE HEAD OF THE BED. SBP 148. VASOPRESSIN AND LEVOPHED STOPPED. DR. DIANE RESPONDED TO THE ROOM AND ORDERED LASIX 40 MG IV STAT. DIURESES OF 1100 CC URINE. LAB DRAW RETURNED WITH BLOOD GLUCOSE 64 AFTER 2ND DRAW WAS COMPLETED. BY THE TIME CRITICAL LOW GLUCOSE WAS REPORTED, INSULIN GTT WAS OFF AND PATIENT HAD BEEN GIVEN APPLE JUICE FOR LAB OF 64. CRITICAL OF [address] DIANE NOTED LABS. REPEAT CBG WAS 58 AND MORE APPLE JUICE ENCOURAGED. BP DROPPED AGAIN AFTER LASIX AND LEVOPHED WAS RESTARTED AT 5 MCG/MIN
[2020-01-30 14:16] LABS: Anion Gap 8 mmol/L (6-16); Blood Urea Nitrogen 10 mg/dL (8-24); Bun/Creatinine Ratio 14.4 (12.0-20.0); CO2, Blood 24 mmol/L (21-32); Calcium, Blood 8.6 mg/dL (8.5-10.1); Chloride, Blood 99 mmol/L (98-108); Glomerular Filtration Rate >60 (60-); Glucose, Blood 77 mg/dL (70-99); Potassium, Blood 3.6 mmol/L (3.5-5.5); Sodium, Blood 131 mmol/L (136-145)
[2020-01-30] MEDS ORDERED: EMGALITY S300 MG/3 M SC (16:58)
--- NOTE | 2020-01-30 17:14 | NUR ---
PATIENT OOB TO USE TOILET FOR BM'S. URINE IS CLEAR WITH NO COLOR. D5 STARTED BY DR. DIANE FOR SODIUM JUMP FROM 122 TO 131. LAST DRAW 134. PATIENT IS MORE ALERT. MELANY AUSTIN RN OBTAINED HX AND RECONCILED MEDS.
--- NOTE | 2020-01-30 19:36 | NUR ---
PATIENT C/O HEADACHE. HYPOTENSIVE AGAIN SHE CONTINUES TO POUR OUT TRANSPARENT URINE THROUGH HER CATHETER. DR. DIANE NOTIFED. BMP DRAWN AND SENT. 250 ML BOLUS NS AND RESTART LEVOPHED. CT ORDERED OF HEAD. REPORT GIVEN TO GUSTAVO KENNEDY
[2020-01-30 19:44] LABS: Anion Gap 6 mmol/L (6-16); Blood Urea Nitrogen 11 mg/dL (8-24); Bun/Creatinine Ratio 13.8 (12.0-20.0); CO2, Blood 25 mmol/L (21-32); Calcium, Blood 8.7 mg/dL (8.5-10.1); Chloride, Blood 108 mmol/L (98-108); Glomerular Filtration Rate >60 (60-); Glucose, Blood 98 mg/dL (70-99); Potassium, Blood 3.5 mmol/L (3.5-5.5); Sodium, Blood 139 mmol/L (136-145)
--- NOTE | 2020-01-30 23:22 | NUR ---
ASSUMPTION OF CARE ASSUMED CARE OF PT @ 190. PT AWAKE IN BED, ORIENTED TO SELF, LOCATION, EVENT AND FOLLOWING DIRECTIONS. PT CONVERSING AND INTERACTING WITH STAFF. O2 SATURATIONS>90% ON RA, MONITOR SHOWS NSR, HYPOTENSIVE. ORDER FOR 250ml NS BOLUS AND TO RESTART LEVOPHED. PT REPORTS PERSISTENT NAUSEA AND HEADACHE 06/12, ORDER FOR CT. PT TRANSPORTED TO CT @ 2019 WITH WAITER/WAITRESS CABIN CLASS AND THIS RN TO MONITOR VS AND GTT'S. ALEJANDRE IN PLACE DRAINING LARGE AMOUNT OF CLEAR LIGHT YELLOW URINE. PT WITH WEAKNESS T/O. CT RESULTS TO DR DIANE, ORDER FOR IMATREX. PT REPORTS FEELING BETTER, TOLERATES PO INTAKE.
[2020-01-31 00:50] LABS: Anion Gap 5 mmol/L (6-16); Blood Urea Nitrogen 11 mg/dL (8-24); Bun/Creatinine Ratio 12.7 (12.0-20.0); CO2, Blood 24 mmol/L (21-32); Calcium, Blood 8.5 mg/dL (8.5-10.1); Chloride, Blood 113 mmol/L (98-108); Creatinine, Blood 0.87 mg/dL (0.40-1.00); Glomerular Filtration Rate >60 (60-); Glucose, Blood 142 mg/dL (70-99); Potassium, Blood 3.4 mmol/L (3.5-5.5); Sodium, Blood 142 mmol/L (136-145)
[2020-01-31 06:52] LABS: BASOPHILS ABSOLUTE AUTO 0.02 K/mm3 (0.00-0.23); BASOPHILS PERCENT AUTO 0 % (0-2); EOSINOPHILS ABSOLUTE AUTO 0.01 K/mm3 (0.00-0.68); EOSINOPHILS PERCENT AUTO 0 % (0-6); Hematocrit 33.1 % (33.0-51.0); Hemoglobin 11.2 g/dL (11.5-16.0); IMMATURE GRAN ABSOLUTE AUTO 0.06 K/mm3 (0.00-0.10); IMMATURE GRAN PERCENT AUTO 0 % (0-1); LYMPHOCYTES ABSOLUTE AUTO 2.71 K/mm3 (0.84-5.20); LYMPHOCYTES PERCENT AUTO 19 % (21-46); MONOCYTES ABSOLUTE AUTO 1.23 K/mm3 (0.16-1.47); MONOCYTES PERCENT AUTO 9 % (4-13); Mean Corpuscular HGB 29.8 pg (26.0-34.0); Mean Corpuscular HGB Conc 33.8 g/dL (31.5-36.5); Mean Corpuscular Volume 88 fL (80-100); Mean Platelet Volume 9.8 fL (9.1-12.4); NEUTROPHILS ABSOLUTE AUTO 10.44 K/mm3 (1.96-9.15); NEUTROPHILS PERCENT AUTO 72 % (41-73); Platelet Count 268 K/mm3 (150-400); RDW Coefficient Variation 12.4 % (11.7-14.2); RDW Standard Deviation 39.8 fL (35.1-46.3); Red Blood Cell Count 3.76 M/mm3 (3.80-5.20); White Blood Cell Count 14.47 K/mm3 (4.00-11.30)
[2020-01-31 07:06] LABS: Alanine Aminotransfer (ALT/SGP 25 U/L (12-78); Albumin, Blood 2.9 g/dL (3.4-5.0); Alk Phos 66 U/L (50-136); Anion Gap 4 mmol/L (6-16); Aspartate Aminotrans (AST/SGOT 22 U/L (12-37); Bilirubin, Total 0.2 mg/dL (0.1-1.0); Blood Urea Nitrogen 9 mg/dL (8-24); Bun/Creatinine Ratio 11.7 (12.0-20.0); CO2, Blood 25 mmol/L (21-32); Calcium, Blood 8.4 mg/dL (8.5-10.1); Chloride, Blood 115 mmol/L (98-108); Creatinine, Blood 0.77 mg/dL (0.40-1.00); Globulin, Blood 2.9 g/dL (2.2-4.0); Glomerular Filtration Rate >60 (60-); Glucose, Blood 128 mg/dL (70-99); Magnesium, Blood 2.5 mg/dL (1.6-2.4); Phosphorus, Blood 1.2 mg/dL (2.5-4.9); Potassium, Blood 3.8 mmol/L (3.5-5.5); Sodium, Blood 144 mmol/L (136-145); Total Protein, Blood 5.8 g/dL (6.4-8.2)
--- NOTE | 2020-01-31 07:15 | NUR ---
REC'D BEDSIDE REPORT FROM GUSTAVO PINEDA AND AM NOW ASSUMING CARE OF THIS PT.
--- NOTE | 2020-01-31 07:23 | NUR ---
SHIFT SUMMARY PT SLEPT T/O SHIFT, REMAINS AROUSABLE TO VERBAL STIMULI, ORIENTED TO SELF, LOCATION, EVENT AND FOLLOWING DIRECTIONS, COMMUNICATING AND INTERACTING WITH STAFF APPROPRIATELY. PT REPORTS 9/10 HEAD PAIN, STS NAUSEA HAS IMPROVED. MONITOR SHOWS SINUS RHYTHM, LEVO GTT CURRENTLY INF @ 8 (SEE FLOWSHEET). PT HAS DECREASED APPETITE, BUT TOLERATED SMALL AMOUNT OF JELLO AND SIPS OF WATER WITH PO MEDICATIONS . ALEJANDRE IN PLACE DRAINING LARGE AMOUNTS OF CLEAR YELLOW URINE. CALL LIGHT WITHIN REACH. REPORT GIVEN TO KRISSY CHEN.
--- NOTE | 2020-01-31 07:45 | NUR ---
AM ASSESSMENT: PT IS ALERT AND ORIENTED SELF/FAMILY/PLACE/TIME/SITUATION. FOLLOWS COMMANDS AND ANSWERS QUESTIONS APPROPRIATELY. MOVES SELF IN BED AND APPROPRIATELY ASKS FOR ASSISTANCE. LUNG ARE CLEAR BUT DIMINISHED T/O BILATERALLY. SP02 SATS>90% ON RA. HR REGULAR, SR-80'S RANGE. CENTRAL LINE IN THE RT IJ WITH LEVOPHED @ 8MCG/MIN TO MAINTAIN BP'S. D5W @ 50ML/HR. SAFE-SET IN PLACE AND PT TO BE REPLACED WITH POTASSIUM PHOSPHATE. ABD SOFT/ROUND/NO GRIMACE TO PALAPTION. BT'S HYPOACTIVE X4 QAUDS. PT REPORT CONTINUED MILD NAUSEA. PT DRAINING LIGHT YELLOW URINE PER ALEJANDRE TO GRAVITY. -FULL CODE -COVID-19 R/O, RESULTS PENDING
--- NOTE | 2020-01-31 09:23 | NUR ---
PT SITTING UP IN BED, EATING BREAKFAST AT THIS TIME. PT DOES NOTE SOME MILD NAUSEA.
--- NOTE | 2020-01-31 12:20 | NUR ---
CALLED [facility] [place] FOR MEDICATION RECONCILATION. AWAITING FAX.
--- NOTE | 2020-01-31 13:14 | NUR ---
PT UPDATE: REGLAN/TYLENOL UNHELPFUL IN REDUCING MIGRAINE SYMPTOMS. PT MEDICATED WITH FIORACET PER HOME DOSE TO ASSIST W/MIGRAIN PAIN.
[2020-01-31 13:45] LABS: Anion Gap 7 mmol/L (6-16); Blood Urea Nitrogen 9 mg/dL (8-24); Bun/Creatinine Ratio 13.3 (12.0-20.0); CO2, Blood 25 mmol/L (21-32); Calcium, Blood 8.5 mg/dL (8.5-10.1); Chloride, Blood 112 mmol/L (98-108); Creatinine, Blood 0.68 mg/dL (0.40-1.00); Glomerular Filtration Rate >60 (60-); Glucose, Blood 120 mg/dL (70-99); Potassium, Blood 3.7 mmol/L (3.5-5.5); Sodium, Blood 144 mmol/L (136-145)
--- NOTE | 2020-01-31 15:14 | NUR ---
DR LITTLE IN ROOM TO ASSESS PT. SEE NEW ORDERS.
--- NOTE | 2020-01-31 17:03 | NUR ---
SHIFT SUMMARY: PT ALERT AND ORIENTED X3. PLEASANT AND COOPERATIVE WITH CARE. PT ANSWERS QUESTIONS AND FOLLOWS COMMANDS APPROPRIATLY. MOVES SELF IN BED. PT HAS C/O OF MIGRAINE-RT HEAD/RT OCCIPITAL AREA. TYLENOL/REGLAN PROVED UNHELPFUL IN REDUCING MIGRAINE PAIN. PT TAKES FIORACET AT HOME AND THIS WAS REORDERED AND STARTED, WHICH REDUCED PAIN "BY 50%" PER PT. PT ALSO REPORTS SOME MILD/EPIGASTRIC "CHEST PAIN" THAT SHE RATES 3/10. CARDIAC ENZYMES NEGATIVE. LUNGS WITH EXPIRATORY WHEEZES T/O BILATERALLY. SP02 >90% ON RA. PT REPORTS SHE FEELS LIKE SHE IS HAVING "A LITTLE MORE DIFFICULTY BREATHING THIS AFTERNOON." HR REGULAR, SR-80'S. PT ON LEVOPHED @ 1MCG/MIN, GIVING ALBUMIN X 3 BOTTLES TO ASSIST IN GETTING PT OFF LEVOPHED. PT CONTINUES TO HAVE MILD NAUSEA T/ O SHIFT. PT PRE-MEDICATED WITH REGLAN (MORE HELPFUL TO PT) BEFORE DINNER. PT DRAINED LARGE AMT OF LIGHT YELLOW COLORED URINE PER ALEJANDRE CATHETER.
--- NOTE | 2020-01-31 18:27 | NUR ---
PT UPDATE: PT VOMITTED POST DINNER, DESPITE PRE-MEDICATING WITH REGLAN. 100ML OF UNDIGESTED FOOD OUT. PT MEDICATED WITH ZOFRAN. WILL CONTINUE TO MONITOR.
--- NOTE | 2020-01-31 19:07 | NUR ---
REPORTED OFF GUSTAVO AHUMADA WHOM IS NOW ASSUMING CARE OF THIS PT.
--- NOTE | 2020-02-01 02:38 | NUR ---
SHIFT NOTE: REPORT FROM CHANELLE CHEN AT START OF SHIFT. PT A+Ox4, LS COARSE c/ EXP WHEEZE BILATERALLY. PT SATS 93-95% ON RA. PT ON CONTINUOUS MONITORING, HR 60'S-80'S NSR. ABD SOFT, PT C/ C/O CONITNUED SLIGHT NAUSEA BUT TOLERABLE. PT C/ ALEJANDRE CATHETER DRAINGING TO GRAVITY OF CLEAR YELLOW URINE. PT WITH NO OTHER C/O BUT STATED SEVERAL TIMES IS WANTING TO GO HOME. WILL CONTINUE TO MONITOR.
[2020-02-01 05:00] LABS: BASOPHILS ABSOLUTE AUTO 0.01 K/mm3 (0.00-0.23); BASOPHILS PERCENT AUTO 0 % (0-2); EOSINOPHILS ABSOLUTE AUTO 0.01 K/mm3 (0.00-0.68); EOSINOPHILS PERCENT AUTO 0 % (0-6); Hematocrit 32.4 % (33.0-51.0); Hemoglobin 11.1 g/dL (11.5-16.0); IMMATURE GRAN ABSOLUTE AUTO 0.05 K/mm3 (0.00-0.10); IMMATURE GRAN PERCENT AUTO 1 % (0-1); LYMPHOCYTES PERCENT AUTO 18 % (21-46); MONOCYTES ABSOLUTE AUTO 0.56 K/mm3 (0.16-1.47); MONOCYTES PERCENT AUTO 6 % (4-13); Mean Corpuscular HGB 31.1 pg (26.0-34.0); Mean Corpuscular HGB Conc 34.3 g/dL (31.5-36.5); NEUTROPHILS ABSOLUTE AUTO 6.97 K/mm3 (1.96-9.15); NEUTROPHILS PERCENT AUTO 75 % (41-73); Platelet Count 217 K/mm3 (150-400); RDW Coefficient Variation 12.8 % (11.7-14.2); RDW Standard Deviation 42.5 fL (35.1-46.3); Red Blood Cell Count 3.57 M/mm3 (3.80-5.20)
[2020-02-01 05:01] LABS: Mean Corpuscular Volume 91 fL (80-100)
[2020-02-01 05:15] LABS: Albumin, Blood 4.1 g/dL (3.4-5.0); Anion Gap 6 mmol/L (6-16); Blood Urea Nitrogen 6 mg/dL (8-24); Bun/Creatinine Ratio 8.4 (12.0-20.0); CO2, Blood 26 mmol/L (21-32); Calcium, Blood 9.1 mg/dL (8.5-10.1); Chloride, Blood 109 mmol/L (98-108); Creatinine, Blood 0.71 mg/dL (0.40-1.00); Glomerular Filtration Rate >60 (60-); Glucose, Blood 118 mg/dL (70-99); Phosphorus, Blood 2.3 mg/dL (2.5-4.9); Potassium, Blood 3.4 mmol/L (3.5-5.5); Sodium, Blood 141 mmol/L (136-145)
--- NOTE | 2020-02-01 05:15 | NUR ---
UPDATE: PT SITTING UP IN BED MOST OF MORNING. VSS. PT CONTINUES DRY COUGH BUT RELIEVED WITH HOT TEA. PT REMAINS ON RA SATS 93-95%. PT REQUESINT TO GO HOME TODAY.
--- NOTE | 2020-02-01 07:17 | NUR ---
ASSUMED CARE REPORT FROM BRANDYN Herrera RN. PATIENT SLEEPING. D5 AT 50 ML/HR, CONTINUES IN ISOLATION FOR R/O COVID-19
--- NOTE | 2020-02-01 10:57 | NUR ---
MD VISIT DR. LITTLE IN. CLEARED PATIENT FOR DISCHARGE TO HOME. NOTIFIED DR. MANSFIELD.
--- NOTE | 2020-02-01 11:09 | NUR ---
DR. LITTLE RECOMMENDS PATIENT DRINK GATORADE AT HOME
--- NOTE | 2020-02-01 12:50 | NUR ---
MD VISIT DR. MANSFIELD IN. WILL WRITE DISCHARGE ORDERS. GUSTAVO NOLASCO IN IN[facility] CONTROL NOTIFIED OF PLANNED DISCHARGE OF R/O COVID-19 PATIENT.
--- NOTE | 2020-02-01 14:57 | NUR ---
RX FAXED TO PHARMACY. CENTRAL LINE DC'D BY GUSTAVO ANGELO. DISCHARGE INSTRUCTIONS GIVEN AND VERBALLY ACKNOWLEDGED. PATIENT WILL ISOLATE AT HOME UNTIL COVID-19 RESULTS RETURNED (IF NEGATIVE). [employer]AY WORKER WILL TAKE PATIENT OUT WITH MASK AND WARM BLANKET IN WHEELCHAIR. ALL BELONGINGS SENT HOME WITH PATIENT.
== END 2020-02-01 15:11 | disposition home or self-care (01) | DRG 643 ==
LOC: ER 19:16 → ICUW 22:14
PROVIDERS: Emergency Medicine; Internal Medicine Critical Care Medicine; ADMIT Family Medicine
PROC: 05HM33Z Insertion of Infusion Device into Right Internal Jugular Vein, Percutaneous Approach (ICD-10-PCS; principal; 2020-01-28)
PROC: B543ZZA Ultrasonography of Right Jugular Veins, Guidance (ICD-10-PCS; 2020-01-28)
DX: E27.1 Primary adrenocortical insufficiency (principal); R57.1 Hypovolemic shock; E87.2 Acidosis; N17.9 Acute kidney failure, unspecified; E87.1 Hypo-osmolality and hyponatremia; R73.9 Hyperglycemia, unspecified; T38.0X5A Adverse effect of glucocorticoids and synthetic analogues, initial encounter; Y92.239 Unspecified place in hospital as the place of occurrence of the external cause; E87.70 Fluid overload, unspecified; E16.2 Hypoglycemia, unspecified; F32.9 Major depressive disorder, single episode, unspecified
CPT/HCPCS: 0097U; 0099U; 36415; 36556; 51702; 70450; 71045; 80048; 80053; 80069; 80076; 81001; 82728; 82947; 83605; 83735; 83880; 84100; 84295; 84484; 85025; 85610; 85730; 86140; 87040; 93005; 93010; 93308; 93321; 96361-59; 96374-59; 96375-59; 99285-25; A9270; C1751; J0171; J1650; J1720; J1815; J1940; J2405; J2765; J3030; J3370; J3480; J7030; J7040; J7042; J7060; J7070; J7120; P9046

== ENCOUNTER → 2020-05-11 | Outpatient (CLI) | payer MEDICARE, BC ==
[~2020-05-11] MED LIST changes: +DICLOFENAC SOD100 G1 TOP; +EMGALITY S300 MG/3 M SC; +TEMA15 PO
== END | disposition home or self-care (01) ==
LOC: LAB 08:27 → LAB SHORT 08:27
DX: L57.0 Actinic keratosis (principal)
CPT/HCPCS: 88305

== ENCOUNTER → 2020-10-09 | Outpatient (CLI) | payer MEDICARE, BC ==
[~2020-10-09] MED LIST changes: +Prednisone20 MG PO
== END ==
LOC: PLD 08:04 → LAB SHORT 08:04
DX: D48.5 Neoplasm of uncertain behavior of skin (principal)
CPT/HCPCS: 88305

== ENCOUNTER 2020-11-26 15:38 | Emergency (ER) | payer MEDICARE, BC ==
[~2020-11-26] VITALS: Ht 172.7 cm; Wt 68.0 kg
[~2020-11-26 15:38] MED LIST changes: -Prednisone20 MG PO
[2020-11-26 16:16] LABS: BASOPHILS ABSOLUTE AUTO 0.02 K/mm3 (0.00-0.23); BASOPHILS PERCENT AUTO 0 % (0-2); EOSINOPHILS ABSOLUTE AUTO 0.17 K/mm3 (0.00-0.68); EOSINOPHILS PERCENT AUTO 2 % (0-6); Hematocrit 47.8 % (33.0-51.0); Hemoglobin 15.3 g/dL (11.5-16.0); IMMATURE GRAN ABSOLUTE AUTO 0.01 K/mm3 (0.00-0.10); IMMATURE GRAN PERCENT AUTO 0 % (0-1); LYMPHOCYTES ABSOLUTE AUTO 2.28 K/mm3 (0.84-5.20); LYMPHOCYTES PERCENT AUTO 25 % (21-46); MONOCYTES ABSOLUTE AUTO 0.66 K/mm3 (0.16-1.47); MONOCYTES PERCENT AUTO 7 % (4-13); Mean Corpuscular HGB 29.5 pg (26.0-34.0); Mean Corpuscular Volume 92 fL (80-100); Mean Platelet Volume 9.7 fL (9.1-12.4); NEUTROPHILS PERCENT AUTO 65 % (41-73); Platelet Count 308 K/mm3 (150-400); RDW Coefficient Variation 12.7 % (11.7-14.2); RDW Standard Deviation 43.4 fL (35.1-46.3); Red Blood Cell Count 5.18 M/mm3 (3.80-5.20); White Blood Cell Count 9.04 K/mm3 (4.00-11.30)
[2020-11-26 16:30] LABS: Alanine Aminotransfer (ALT/SGP 31 U/L (12-78); Albumin, Blood 4.2 g/dL (3.4-5.0); Albumin/Globulin Ratio 1.1 (0.8-1.8); Alk Phos 100 U/L (50-136); Anion Gap 5 mmol/L (6-16); Aspartate Aminotrans (AST/SGOT 13 U/L (12-37); Bilirubin, Total 0.4 mg/dL (0.1-1.0); Blood Urea Nitrogen 19 mg/dL (8-24); Bun/Creatinine Ratio 21.7 (12.0-20.0); CO2, Blood 30 mmol/L (21-32); Calcium, Blood 10.2 mg/dL (8.5-10.1); Chloride, Blood 107 mmol/L (98-108); Creatinine, Blood 0.88 mg/dL (0.40-1.00); Globulin, Blood 3.9 g/dL (2.2-4.0); Glomerular Filtration Rate >60 (60-); Glucose, Blood 98 mg/dL (70-99); Potassium, Blood 3.8 mmol/L (3.5-5.5); Sodium, Blood 142 mmol/L (136-145); Total Protein, Blood 8.1 g/dL (6.4-8.2)
[2020-11-26] MEDS ORDERED: Prednisone20 MG PO (18:16)
== END 2020-11-26 18:26 | disposition home or self-care (01) ==
LOC: ER 15:38
PROVIDERS: Physician Assistant
DX: T78.2XXA Anaphylactic shock, unspecified, initial encounter (principal); R22.0 Localized swelling, mass and lump, head; Z91.030 Bee allergy status; Z88.0 Allergy status to penicillin; Z91.040 Latex allergy status; Z79.899 Other long term (current) drug therapy; Z87.891 Personal history of nicotine dependence
CPT/HCPCS: 36415; 80053; 85025; 96372-59; 96374; 96375; 99284-25; J0171; J1200; J2930

== ENCOUNTER → 2021-09-24 | Outpatient (CLI) | payer MEDICARE ==
[~2021-09-24] MED LIST changes: +Prednisone20 MG PO
== END ==
LOC: LAB SHORT 11:04 → LAB 11:04
DX: L98.9 Disorder of the skin and subcutaneous tissue, unspecified (principal); L30.8 Other specified dermatitis
CPT/HCPCS: 88305; 88312

== ENCOUNTER → 2022-02-15 | Outpatient (CLI) | payer MEDICARE, BC ==
[2022-02-15 14:03] LABS: BASOPHILS ABSOLUTE AUTO 0.03 K/mm3 (0.00-0.23); BASOPHILS PERCENT AUTO 1 % (0-2); EOSINOPHILS ABSOLUTE AUTO 0.24 K/mm3 (0.00-0.68); EOSINOPHILS PERCENT AUTO 4 % (0-6); Hematocrit 45.9 % (33.0-51.0); Hemoglobin 15.2 g/dL (11.5-16.0); IMMATURE GRAN ABSOLUTE AUTO 0.01 K/mm3 (0.00-0.10); IMMATURE GRAN PERCENT AUTO 0 % (0-1); LYMPHOCYTES PERCENT AUTO 20 % (21-46); MONOCYTES ABSOLUTE AUTO 0.64 K/mm3 (0.16-1.47); MONOCYTES PERCENT AUTO 11 % (4-13); Mean Corpuscular HGB 30.1 pg (26.0-34.0); Mean Corpuscular HGB Conc 33.1 g/dL (31.5-36.5); Mean Corpuscular Volume 91 fL (80-100); NEUTROPHILS ABSOLUTE AUTO 3.81 K/mm3 (1.96-9.15); NEUTROPHILS PERCENT AUTO 64 % (41-73); Platelet Count 231 K/mm3 (150-400); RDW Coefficient Variation 12.7 % (11.7-14.2); RDW Standard Deviation 42.3 fL (35.1-46.3); Red Blood Cell Count 5.05 M/mm3 (3.80-5.20); White Blood Cell Count 5.93 K/mm3 (4.00-11.30)
[2022-02-15 14:31] LABS: Alanine Aminotransfer (ALT/SGP 63 U/L (12-78); Albumin/Globulin Ratio 1.1 (0.8-1.8); Alk Phos 102 U/L (50-136); Anion Gap 5 mmol/L (6-16); Aspartate Aminotrans (AST/SGOT 30 U/L (12-37); Bilirubin, Total 0.2 mg/dL (0.1-1.0); Blood Urea Nitrogen 11 mg/dL (8-24); Bun/Creatinine Ratio 15.7 (12.0-20.0); CO2, Blood 27 mmol/L (21-32); Calcium, Blood 8.2 mg/dL (8.5-10.1); Chloride, Blood 108 mmol/L (98-108); Globulin, Blood 3.8 g/dL (2.2-4.0); Glomerular Filtration Rate >60 (60-); Glucose, Blood 101 mg/dL (70-99); Potassium, Blood 4.8 mmol/L (3.5-5.5); Sodium, Blood 140 mmol/L (136-145); Total Protein, Blood 7.8 g/dL (6.4-8.2)
== END | disposition home or self-care (01) ==
LOC: LAB SHORT 13:12 → LAB 13:12
PROVIDERS: Nurse Practitioner Family
DX: J20.9 Acute bronchitis, unspecified (principal); E86.0 Dehydration; E27.1 Primary adrenocortical insufficiency; E16.2 Hypoglycemia, unspecified
CPT/HCPCS: 80053; 85025; 87086

== ENCOUNTER 2023-06-22 10:59 | Emergency (ER) | payer MEDICARE, BC ==
[~2023-06-22] VITALS: Ht 172.7 cm; Wt 72.1 kg
[2023-06-22 11:10] VITALS: BP 155/112
[2023-06-22 13:14] LABS: BASOPHILS ABSOLUTE AUTO 0.05 K/mm3 (0.00-0.23); BASOPHILS PERCENT AUTO 0 % (0-2); EOSINOPHILS ABSOLUTE AUTO 0.19 K/mm3 (0.00-0.68); EOSINOPHILS PERCENT AUTO 2 % (0-6); Hematocrit 51.3 % (33.0-51.0); Hemoglobin 17.6 g/dL (11.5-16.0); IMMATURE GRAN ABSOLUTE AUTO 0.03 K/mm3 (0.00-0.10); IMMATURE GRAN PERCENT AUTO 0 % (0-1); LYMPHOCYTES ABSOLUTE AUTO 2.89 K/mm3 (0.84-5.20); LYMPHOCYTES PERCENT AUTO 23 % (21-46); MONOCYTES ABSOLUTE AUTO 0.88 K/mm3 (0.16-1.47); MONOCYTES PERCENT AUTO 7 % (4-13); Mean Corpuscular HGB 30.1 pg (26.0-34.0); Mean Corpuscular HGB Conc 34.3 g/dL (31.5-36.5); Mean Corpuscular Volume 88 fL (80-100); NEUTROPHILS ABSOLUTE AUTO 8.46 K/mm3 (1.96-9.15); NEUTROPHILS PERCENT AUTO 68 % (41-73); Platelet Count 374 K/mm3 (150-400); RDW Coefficient Variation 12.6 % (11.7-14.2); RDW Standard Deviation 40.4 fL (35.1-46.3); Red Blood Cell Count 5.84 M/mm3 (3.80-5.20)
[2023-06-22 13:40] LABS: Albumin, Blood 4.6 g/dL (3.4-5.0); Bilirubin, Total 0.3 mg/dL (0.1-1.0); Bun/Creatinine Ratio 27.5 (12.0-20.0); Calcium, Blood 12.1 mg/dL (8.5-10.1); Creatinine, Blood 0.84 mg/dL (0.40-1.00); Globulin, Blood 4.5 g/dL (2.2-4.0); Potassium, Blood 3.6 mmol/L (3.5-5.5); Total Protein, Blood 9.1 g/dL (6.4-8.2)
[2023-06-22 15:22] LABS: Magnesium, Blood 2.4 mg/dL (1.6-2.4)
[2023-06-22 15:24] LABS: Phosphorus, Blood 3.3 mg/dL (2.5-4.9); Thyroid Stimulating Hormone 1.55 uIU/mL (0.360-4.800)
== END 2023-06-22 17:02 ==
LOC: ER 10:59
PROVIDERS: Emergency Medicine; Student in an Organized Health Care Education/Training Program
DX: R07.89 Other chest pain (principal); E83.52 Hypercalcemia; R06.02 Shortness of breath; Z88.0 Allergy status to penicillin; Z91.041 Radiographic dye allergy status; Z91.030 Bee allergy status; Z79.899 Other long term (current) drug therapy; Z87.891 Personal history of nicotine dependence
CPT/HCPCS: 71046; 80053; 82330; 83690; 83735; 83970; 84100; 84443; 84484; 85025; 85379; 93005; 93010; 99284-25; J7030